=== PATIENT | female | born 1985 | race Caucasian/White ===

== ENCOUNTER → 2019-02-18 | Outpatient (CLI) | payer OTHER ==
[2015-05-10 10:55] VITALS: BP 121/78
[~2019-02-18] MED LIST: HYDR-3164 PO; NAPR-683 PO
--- NOTE | 2019-02-18 13:03 | KCIC ---
Chest radiograph 02/18/2019 12:00 AM INDICATION: Cough COMPARISON: None available TECHNIQUE: Frontal and lateral views of the chest are provided. FINDINGS: The cardiomediastinal silhouette is within normal limits. There are no pleural effusions. There is no pulmonary vascular congestion. There is no pneumothorax. The lungs are clear. No significant osseous abnormality is identified. Cholecystectomy clips are identified in the right upper quadrant of abdomen. IMPRESSION: No acute cardiopulmonary process. Electronically signed by: Geri Mcconnell MD (02/18/2019 1:00 PM) [id number]
== END | disposition home or self-care (01) ==
LOC: KCIC 11:14
PROVIDERS: ATTEND Family Medicine
DX: R05 Cough (principal); Z68.27 Body mass index [BMI] 27.0-27.9, adult
CPT/HCPCS: 71046

== ENCOUNTER → 2021-07-05 | Outpatient (CLI) | payer BC ==
[2015-05-10 10:55] VITALS: BP 121/78
--- NOTE | 2021-07-05 11:24 | KCIC ---
EXAM: Left foot, 2 views; left toes, 3 views. HISTORY: Pain. COMPARISON: None. FINDINGS: 2 views of the left foot and 3 views of the left toes are obtained. There is a mildly displ aced fracture involving the base of the first distal phalanx. No foreign body is seen. There is a jarek pected benign bone island within navicular bone. IMPRESSION: Mildly displaced fracture the base of the first distal phalanx. Electronically signed by: Juliet Valentine MD (07/05/2021 11:22 AM) [id number]
== END ==
LOC: KCIC 10:18
PROVIDERS: ATTEND Family Medicine
DX: S92.912A Unspecified fracture of left toe(s), initial encounter for closed fracture (principal); M79.672 Pain in left foot; M25.475 Effusion, left foot; X58.XXXA Exposure to other specified factors, initial encounter; Y93.89 Activity, other specified; Y92.89 Other specified places as the place of occurrence of the external cause; Y99.8 Other external cause status
CPT/HCPCS: 73620; 73660